=== PATIENT | female | born 1990 | race Two or more races ===

== ENCOUNTER 2019-02-25 04:42 | Emergency (ER) | payer OTHER ==
[2019-02-25 04:55] VITALS: BP 127/73
[2019-02-25] MEDS ORDERED: NEOMYCIN/POLYMYX B/HC SUSP 10 ML OTIC.BTL EACHEAR ONE (05:11)
[2019-02-25] MEDS ORDERED: HYDROCOD/APAP 5/325 PREPACK#6 BTL TAKEHOME ONE (05:11)
--- NOTE | 2019-02-25 05:15 | EDPHY ---
H & P Time Seen by Provider: 02/25/19 04:50 HPI/ROS: Chief complaint: Severe right ear pain HPI: She did have a mild itchy eyes without runny nose earlier in the week. However, there is really no allergic symptoms thus usually does get symptomatic this time of year, such as wheezing or shortness of breath. Beginning yesterday on February 23, she started having the right earache. However she is too busy to get in to see her family physician, though it was pretty painful. Since that time there has been no drainage discharge. She has had no trouble with her balance or coordination. She has had no earache on the left nor trouble in hearing on the left with out any problems related to swollen glands or sore throat or facial discomfort in the cardinal areas for sinusitis. She does use Q tips into the ears. She has tried ibuprofen with minimal relief. She does not have a personal history of substance abuse nor family history of substance abuse. She is not known to have bipolar disorder. ROS: Constitutional - no fevers or chills. Eyes - no discharge, or injection ENT -see above Respiratory - No Shortness of breath, phlegm, wheezing or pleuritic chest pain. The cough is dry. Smoking Status: Never smoked Physical Exam: Gen: Well developed, well nourished. Nontoxic. afebrile VSS. She looks uncomfortable as she is holding her hand up against her right ear, tears at times. HEENT: Normocephalic. Ears: TMs are clear on the left. However I am unable to see the TM on the right due to cerumen impaction. On the canal on the right is erythematous at the base. She also has significant discomfort with palpation of the external pinna just behind at the level of the auditory canal as well as over the tragus , and it with traction of the pinna. Eyes: PERRL. Mild conjunctival injection as she has been crying. No jaundice. Nose: No nasal discharge. Throat: Normal phonation. Skin: Good color, without pallor. There is no diaphoresis. Skin is warm and dry , without diaphoresis. Intact without rashes Constitutional: Initial Vital Signs Temperature (C) 36.6 C 02/25/19 04:50 Heart Rate 62 02/25/19 04:50 Respiratory Rate 18 02/25/19 04:50 Blood Pressure 127/73 H 02/25/19 04:50 O2 Sat (%) 94 02/25/19 04:50 O2 Delivery Mode Room Air Allergies/Adverse Reactions: No Known Allergies Allergy (Unverified 02/25/19 04:51) Home Medications: Medication Instructions Recorded Hydrocodone/APAP 5/325 [[place] 1 - 2 tab PO Q6H PRN #8 tab 02/25/19 5/325 (*)] Medical Decision Making ED Course/Re-evaluation: We discussed modalities for pain management. Given the canal erythema and tenderness it most likely the ibuprofen which has not worked at 11:00 a.m. Lorena some 3 hr ago was not going to work any better through the course of the day until say Wednesday when she has had some 48 hr worth of any antibiotic drops. Thereby I would recommend to her that she consider a moderate dose narcotic. She concurs I checked the prescription drug monitoring program and she is not in the database but no activity last year. Differential Diagnosis: Diagnostic considerations include, but are not limited to, the following, 5this represents a partial list of diagnoses considered These considerations are based on history, physical exam, past history, reassessment and diagnostic testing: Otitis media, otitis externa, [place] Mir syndrome, shingles. - Data Points Medications Given: Discontinued Medications Hydrocodone Bitart/Acetaminophen ([place] 5/325mg Prepack#6) 1 btl TAKEHOME EDNOW ONE Stop: 02/25/19 05:12 Last Admin: 02/25/19 05:18 Dose: 1 btl Neomycin/Polymyxin/Hydrocortisone (Cortisporin Otic Suspension) 3 - 4 drops EACHEAR EDNOW ONE Stop: 02/25/19 05:12 Last Admin: 02/25/19 05:18 Dose: 3 drop Departure - Departure Disposition: Home, Routine, Self-Care Clinical Impression: Otitis externa Qualifiers: Otitis externa type: other infective Chronicity: acute Laterality: right Qualified Code(s): H60.391 - Other infective otitis externa, right ear Condition: Good Instructions: Hydrocodone/Acetaminophen (By mouth), Neomycin/Polymyxin B/ Hydrocortisone (Into the ear), Otitis Externa (ED) Additional Instructions: Do not use Q tips any longer, inside the canal! Dry Ears for next two weeks: - no swimming - when showering - place a small cotton ball smeared with antibiotic ointment into the bowl of the ear, so as to create a seal. Recheck with her family physician in 3 days time if not a whole lot better You were given Vicodin here in the ER. It is important you do not drive or drink or worker machinery for at least [24 hours] after a dose. Referrals: Patient,NotPresent [Primary Care Provider] - As per Instructions Jayme Kirkpatrick MD [[facility] [place] Primary Care Provider] - As per Instructions Stand Alone Forms: Work Excuse Prescriptions: Hydrocodone/APAP 5/325 [[place] 5/325 (*)] 1 - 2 tab PO Q6H PRN #8 tab PRN Reason: moderate to severe pain
== END 2019-02-25 05:30 | disposition home or self-care (01) ==
LOC: CED 04:42
DX: H60.391 Other infective otitis externa, right ear (principal)
CPT/HCPCS: 99283-ER